=== PATIENT | female | born 1950 | race Caucasian/White ===

== ENCOUNTER 2023-05-30 10:22 | Inpatient (IN) | payer OTHER ==
[~2023-05-30] VITALS: Ht 165.1 cm; Wt 63.5 kg
[2023-05-30 11:39] LABS: Basophils # (auto) 0.1 10 ^3/uL (0-0.2); Basophils % (auto) 0.9 % (0.0-2.0); Eosinophils # (auto) 0.1 10 ^3/uL (0-0.8); Eosinophils % (auto) 1.4 % (0.0-7.0); Hematocrit 41.9 % (36.0-46.0); Hemoglobin 14.3 g/dL (12.2-16.2); Lymphocytes # (auto) 2.1 10 ^3/uL (0.4-5.4); Lymphocytes % (auto) 25.1 % (10.0-50.0); Mean Corpuscular Hemoglobin 31.4 pg (28.0-32.0); Mean Corpuscular Hgb Conc. 34.1 g/dL (32.0-36.0); Monocytes # (auto) 0.4 10 ^3/uL (0-1.3); Monocytes % (auto) 4.7 % (0.0-12.0); Neutrophils # (auto) 5.6 10 ^3/uL (1.6-8.6); Neutrophils % (auto) 67.9 % (37.0-80.0); Nucleated Red Blood Cells % 0.1 %; Red Blood Cells 4.56 10^6/uL (4.0-5.20); Red Cell Distribution Width 14.6 % (11.8-14.3); White Blood Cell 8.3 10^3/uL (4.4-10.8)
[2023-05-30 11:44] LABS: Chloride 107 mmol/L (98-107); Potassium 3.9 mmol/L (3.5-5.1); Sodium 141 mmol/L (136-145)
[2023-05-30 11:45] LABS: Anion Gap 8 (5-15); Carbon Dioxide 26 mmol/L (20-30)
[2023-05-30 11:50] LABS: BUN/Creatinine Ratio 10.5 (10.0-20.0); Blood Urea Nitrogen 10 mg/dL (9-23); Glucose 95 mg/dL (74-106)
[2023-05-30] MEDS: IOHEXOL 350 MG/ML 100ML IJ ONE (12:17)
[2023-05-30 12:47] LABS: Lipase 60 U/L (12-53)
[2023-05-30 13:17] LABS: Urine Bacteria FEW /hpf (None Seen); Urine Blood 1+ /uL (Negative); Urine Clarity Clear (Clear); Urine Color Yellow (Yellow); Urine Hyaline Cast FEW /lpf (0 - 2); Urine Mucus FEW (None Seen); Urine Protein, UAD Negative (Negative); Urine Specific Gravity 1.017 (1.001-1.035); Urine Urobilinogen Normal (Negative); Urine WBC 1 /hpf (0 - 5); Urine pH 5.5 (5.0-8.0)
[2023-05-30 13:46] VITALS: PULSE 79; RESP 17; O2SAT 97
[2023-05-30] MEDS: MORPHINE SULFATE 4 MG/ML SYR/VIAL IV ONE (13:54)
[2023-05-30] MEDS: ONDANSETRON HCL 4 MG/2 ML VIAL IV ONE (13:54)
[2023-05-30] MEDS ORDERED: NITROGLYCERIN 0.4 MG SL TAB SL PRN (15:30)
[2023-05-30] MEDS ORDERED: MORPHINE SULFATE INJ 2 MG/ml SYRG IV PRN ×3 (15:30)
[2023-05-30] MEDS ORDERED: cloNIDine HCL 0.1 MG TAB PO PRN (15:30)
[2023-05-30 16:03] LABS: Triglycerides 117 mg/dL (< 150)
[2023-05-30 16:04] LABS: LDL Cholesterol 75 mg/dL (< 100)
[2023-05-30 16:05] LABS: Cholesterol 133 mg/dL (< 200); HDL Cholesterol 38 mg/dL (40-59)
[2023-05-30] MEDS: ONDANSETRON HCL 4 MG/2 ML VIAL IV PRN (17:24)
[2023-05-30 18:53] VITALS: RESP 16; O2SAT 96
[2023-05-30 19:02] VITALS: BP 166/70; PULSE 71; RESP 18; TEMP 97.9; O2SAT 96
[2023-05-30 19:07] VITALS: BP 124/55; PULSE 68; RESP 18; TEMP 97.9
[2023-05-30 20:00] VITALS: PULSE 69; PULSE 71; RESP 18; O2SAT 96
[2023-05-30] MEDS ORDERED: ATOR20TA50 PO (21:04)
[2023-05-30] MEDS ORDERED: METO25TA5 PO (21:04)
[2023-05-30] MEDS: CARVEDILOL 3.125 MG TAB PO SCH (21:06)
[2023-05-30 22:00] VITALS: BP 124/55; PULSE 68; RESP 18; TEMP 97.9; O2SAT 95
[2023-05-30] MEDS: LOSARTAN POTASSIUM 25 MG TAB PO SCH (22:14)
[2023-05-31] VITALS (7 sets, daily range): BP systolic 107–154; BP diastolic 66–75; PULSE 65–76; RESP 16–20; TEMP 97.6–98.8; O2SAT 94–96
[2023-05-31 05:41] LABS: Basophils # (auto) 0.1 10 ^3/uL (0-0.2); Basophils % (auto) 0.7 % (0.0-2.0); Eosinophils # (auto) 0.1 10 ^3/uL (0-0.8); Eosinophils % (auto) 1.9 % (0.0-7.0); Hemoglobin 12.4 g/dL (12.2-16.2); Lymphocytes # (auto) 2.7 10 ^3/uL (0.4-5.4); Lymphocytes % (auto) 33.5 % (10.0-50.0); Mean Corpuscular Hgb Conc. 33.5 g/dL (32.0-36.0); Mean Corpuscular Volume 92.6 fL (80.0-100.0); Monocytes # (auto) 0.6 10 ^3/uL (0-1.3); Monocytes % (auto) 7.3 % (0.0-12.0); Neutrophils # (auto) 4.5 10 ^3/uL (1.6-8.6); Neutrophils % (auto) 56.6 % (37.0-80.0); Red Cell Distribution Width 15.1 % (11.8-14.3); White Blood Cell 7.9 10^3/uL (4.4-10.8)
[2023-05-31 06:04] LABS: Alkaline Phosphatase 71 U/L (46-116); Anion Gap 7 (5-15); BUN/Creatinine Ratio 6.3 (10.0-20.0); Blood Urea Nitrogen 7 mg/dL (9-23); Carbon Dioxide 24 mmol/L (20-30); Chloride 107 mmol/L (98-107); Glucose 97 mg/dL (74-106); Lipase 42 U/L (12-53); Sodium 138 mmol/L (136-145)
[2023-05-31 06:05] LABS: Aspartate Aminotransferase 13 U/L (13-40)
[2023-05-31 06:06] LABS: Total Protein 6.4 g/dL (5.7-8.2)
[2023-05-31 06:27] LABS: Alanine Aminotransferase < 9 U/L (7-40)
[2023-05-31] MEDS: ENOXAPARIN SOD 40 MG/0.4 ML SYRINGE SC SCH (10:32)
[2023-05-31] MEDS: ASPirin-EC 81 mg tab PO SCH (10:32)
[2023-05-31] MEDS: FAMOTIDINE 20 MG TAB PO SCH (10:32)
[2023-05-31] MEDS: HYOSCYAMINE SULF 0.125 MG ODT TAB PO SCH (18:24)
[2023-05-31] MEDS: DOXYCYCLINE 100MG/250ML 250 ML IV SCH (21:51)
[2023-05-31] MEDS: PANTOPRAZOLE 40 MG TAB PO SCH (22:12)
[2023-06-01] VITALS (7 sets, daily range): BP systolic 114–158; BP diastolic 56–79; PULSE 51–82; RESP 18–20; TEMP 97.7–98.7; O2SAT 9–99
[2023-06-01 06:03] LABS: Basophils # (auto) 0 10 ^3/uL (0-0.2); Basophils % (auto) 0.9 % (0.0-2.0); Eosinophils # (auto) 0.1 10 ^3/uL (0-0.8); Eosinophils % (auto) 2.8 % (0.0-7.0); Hematocrit 37.9 % (36.0-46.0); Hemoglobin 12.9 g/dL (12.2-16.2); Lymphocytes # (auto) 2.3 10 ^3/uL (0.4-5.4); Lymphocytes % (auto) 46.9 % (10.0-50.0); Mean Corpuscular Hemoglobin 31.1 pg (28.0-32.0); Mean Corpuscular Hgb Conc. 33.9 g/dL (32.0-36.0); Mean Corpuscular Volume 91.9 fL (80.0-100.0); Monocytes # (auto) 0.3 10 ^3/uL (0-1.3); Monocytes % (auto) 6.8 % (0.0-12.0); Neutrophils # (auto) 2.1 10 ^3/uL (1.6-8.6); Neutrophils % (auto) 42.6 % (37.0-80.0); Nucleated Red Blood Cells % 0.1 %; Red Blood Cells 4.13 10^6/uL (4.0-5.20); Red Cell Distribution Width 14.6 % (11.8-14.3); White Blood Cell 4.8 10^3/uL (4.4-10.8)
[2023-06-01 06:50] LABS: Alanine Aminotransferase < 9 U/L (7-40); Albumin 4.2 g/dL (3.2-4.8); Alkaline Phosphatase 68 U/L (46-116); Anion Gap 6 (5-15); Aspartate Aminotransferase 12 U/L (13-40); BUN/Creatinine Ratio 7.4 (10.0-20.0); Bilirubin, Total 1.1 mg/dL (0.2-1.0); Blood Urea Nitrogen 8 mg/dL (9-23); Calcium 9.2 mg/dL (8.7-10.4); Carbon Dioxide 28 mmol/L (20-30); Chloride 108 mmol/L (98-107); Glucose 87 mg/dL (74-106); Lipase 29 U/L (12-53); Potassium 4.1 mmol/L (3.5-5.1); Sodium 142 mmol/L (136-145); Total Protein 6.6 g/dL (5.7-8.2)
[2023-06-01] MEDS ORDERED: OMNIPAQUE 12mg/ml 500ml ORAL SOLUTION PO ONE (09:33)
[2023-06-02 05:00] VITALS: BP 127/66; PULSE 64; RESP 16; TEMP 98; O2SAT 92
[2023-06-02 08:00] VITALS: PULSE 64; RESP 18; O2SAT 95
[2023-06-02 09:00] VITALS: BP 144/68; PULSE 64; RESP 18; TEMP 97.8; O2SAT 95
[2023-06-02 13:00] VITALS: BP 148/72; PULSE 68; RESP 17; TEMP 98.2; O2SAT 95
[2023-06-02] MEDS ORDERED: HYOS0.1289 PO (14:22)
[2023-06-02] MEDS ORDERED: LOSA50TA46 PO (14:22)
[2023-06-02 16:30] VITALS: BP 148/72; PULSE 68; RESP 17; TEMP 98.2; O2SAT 95
== END 2023-06-02 17:15 | disposition home or self-care (01) | DRG 392 ==
LOC: ER 10:22 → TELE 15:35 → TELE-EAST 18:37
PROVIDERS: ADMIT Hospitalist; ATTEND Hospitalist
DX: K21.9 Gastro-esophageal reflux disease without esophagitis (principal); I71.40 Abdominal aortic aneurysm, without rupture, unspecified; Z88.0 Allergy status to penicillin; Z88.1 Allergy status to other antibiotic agents; Z90.49 Acquired absence of other specified parts of digestive tract; Z86.79 Personal history of other diseases of the circulatory system; I16.0 Hypertensive urgency
CPT/HCPCS: 36415; 71260; 74176; 74177; 80048; 80053; 80061; 81001; 83036; 83690; 83880; 84484; 85025; 93005; 93306; 97110; 97116; 97163; 97530; G0378; J2405; J3490; J7042